=== PATIENT | female | born 1960 | race Two or more races ===

== ENCOUNTER 2021-10-16 03:42 | Emergency (ER) | payer OTHER ==
[~2021-10-16] VITALS: Ht 165.1 cm; Wt 65.8 kg
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
[2021-10-16] MEDS ORDERED: LIDOCAINE 1%-EPI 1:100,000 20 ML VIAL ONE (04:22)
[2021-10-16] MEDS ORDERED: TDAP [DIPH/PERTUSSIS/TET] 0.5 ML VIAL IM ONE ×2 (04:23→04:30)
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
--- NOTE | 2021-10-16 05:43 | NUR ---
CALLED [facility] AND SPOKE TO DANNIE, THEY'RE AT CAPACITY,
--- NOTE | 2021-10-16 05:46 | NUR ---
CALLED [facility] AND SPOKE TO BLAYNE. NO OMFS AVAILABLE
[2021-10-16] MEDS ORDERED: CT SWABBABLE VALVE TRANS SET 1 EA INFUS.SET MC ONE (05:58)
[2021-10-16] MEDS ORDERED: IOHEXOL-350 100 ML VIAL IV ONE (05:58)
[2021-10-16] MEDS ORDERED: IV NS 0.9% 250 ML IV ONE (05:58)
--- NOTE | 2021-10-16 05:58 | NUR ---
CALLED [facility] AND SPOKE TO RAY. NO TELE BED AVAILABLE
[2021-10-16] MEDS ORDERED: PIPERACILLIN /TAZOBACTAM 3.375 G in IV D5W 50 ML IV ONE (06:00)
[2021-10-16] MEDS ORDERED: PIPERACILLIN /TAZOBACTAM 3.375 G VIAL IV ONE (06:04)
[2021-10-16 06:16] LABS: BASOPHILS # (AUTO) 0.1 K/uL (0.0-0.2); BASOPHILS % (AUTO) 0.6 % (0.0-2.0); EOSINOPHILS % (AUTO) 0.4 % (0.0-6.0); HEMATOCRIT 43 % (33-45); HEMOGLOBIN 14.3 g/dL (11.5-14.8); LYMPHOCYTES # (AUTO) 1.5 K/uL (0.8-4.8); LYMPHOCYTES % (AUTO) 14.5 % (20.0-44.0); MEAN CORPUSCULAR HGB CONC 34 g/dl (31.0-36.0); MEAN CORPUSCULAR VOLUME 92 fL (82-100); MONOCYTES # (AUTO) 0.7 K/uL (0.1-1.30); MONOCYTES % (AUTO) 6.9 % (2.0-12.0); NEUTROPHILS # (AUTO) 8.2 K/uL (1.8-8.9); NEUTROPHILS % (AUTO) 77.6 % (43.0-81.0); PLATELET COUNT (AUTO) 198 K/uL (150-450); RED BLOOD CELL COUNT(AUTO) 4.64 MIL/uL (4.0-5.2); WHITE BLOOD COUNT (AUTO) 10.6 K/uL (4.3-11.0)
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
--- NOTE | 2021-10-16 06:31 | NUR ---
CALLED [facility] AT [phone]. NO ANSWER. LEFT A MESSAGE
[2021-10-16 06:46] LABS: ALANINE AMINOTRANSFERASE 51 U/L (12-78); ALBUMIN 3.1 g/dL (3.4-5.0); ALKALINE PHOSPHATASE 135 U/L (46-116); ASPARTATE AMINOTRANSFERASE 53 U/L (15-37); BILIRUBIN,DIRECT 0.1 mg/dL (0.0-0.2); BILIRUBIN,TOTAL 0.5 mg/dL (0.2-1.0); CALCIUM, SERUM 10.2 mg/dL (8.5-10.1); CARBON DIOXIDE 25 mmol/L (21-32); CHLORIDE 100 mmol/L (98-107); CREATININE 0.7 mg/dL (0.6-1.3); POTASSIUM 3.9 mmol/L (3.5-5.1); SODIUM SERUM 134 mmol/L (136-145); TOTAL PROTEIN, SERUM 6.7 g/dL (6.4-8.2); UREA NITROGEN, BLOOD 16 mg/dL (7-18)
[2021-10-16 06:47] LABS: GLUCOSE 352 mg/dL (74-106)
[2021-10-16] MEDS ORDERED: IV NS 0.9% 1,000 ML BAG IV ONE (07:00)
--- NOTE | 2021-10-16 08:00 | NUR ---
THE PATIENT IS RECEIVED IN ER BED #11. THE PATIENT IS SLEEPING. EASILY RESPONSIVE TO VERBAL STIMULI. RESPIRATION REGULAR AND UNLABORED. REMAINS ATTACHED TO THE MONITOR. WILL CONTINUE TO MONITOR THE PATIENT.
--- NOTE | 2021-10-16 08:30 | NUR ---
CALLED [facility] THEY WILL FAX US AN APLICATION
--- NOTE | 2021-10-16 08:38 | NUR ---
DR. SLADE FROM [facility] ER SPEAKING WITH DR. SORIA
--- NOTE | 2021-10-16 08:43 | NUR ---
CALLED [facility] [phone] DR. SLADE ACCEPTED PT FOR TRANSFER
--- NOTE | 2021-10-16 08:47 | NUR ---
[facility] CALLED FOR TRANSPORT ETA 1000 PER WENDY
--- NOTE | 2021-10-16 09:04 | NUR ---
REPORT GIVEN TO NURSE CRUZ FROM [facility]
[2021-10-16 09:08] VITALS: BP 164/96
--- NOTE | 2021-10-16 09:36 | NUR ---
REPORT GIVEN TO AMBULANCE STAFF
--- NOTE | 2021-10-16 10:05 | NUR ---
THE PATIENT IS TRANSFERED TO [facility] [place] [facility]
== END 2021-10-16 10:07 | disposition short-term general hospital (02) ==
LOC: ER 03:46
DX: S02.641A Fracture of ramus of right mandible, initial encounter for closed fracture (principal); S02.2XXA Fracture of nasal bones, initial encounter for closed fracture; S02.19XA Other fracture of base of skull, initial encounter for closed fracture; S22.32XA Fracture of one rib, left side, initial encounter for closed fracture; S02.612A Fracture of condylar process of left mandible, initial encounter for closed fracture; S02.611A Fracture of condylar process of right mandible, initial encounter for closed fracture; V19.88XA Pedal cyclist (driver) (passenger) injured in other specified transport accidents, initial encounter; Y93.55 Activity, bike riding; Y92.89 Other specified places as the place of occurrence of the external cause; F10.129 Alcohol abuse with intoxication, unspecified; Y90.0 Blood alcohol level of less than 20 mg/100 ml; Z20.822 Contact with and (suspected) exposure to COVID-19; S01.81XA Laceration without foreign body of other part of head, initial encounter; E11.65 Type 2 diabetes mellitus with hyperglycemia; I10 Essential (primary) hypertension
CPT/HCPCS: 12011; 36415; 70450; 70486; 71100; 72125; 74177; 80048; 80076; 80320; 84484; 85025; 85730; 87426; 90471; 90715; 93005; 96361; 96365; 99291; C9803; J2543 ×2; J3490; J7030; J7050; J7060; L0172; Q9967; G0480